=== PATIENT | female | born 1935 | race Hispanic/Latino ===

== ENCOUNTER 2019-05-11 10:29 | Inpatient (IN) | payer MEDICARE, OTHER ==
[~2019-05-11] VITALS: Ht 157.5 cm; Wt 84.1 kg
[2019-05-11 10:56] LABS: BASOPHILS % (AUTO) 0.4 % (0.0-5.0); EOSINOPHILS % (AUTO) 1.5 % (0.0-8.0); HEMATOCRIT 40.7 % (36-48); LYMPHOCYTES % (AUTO) 34.3 % (21.0-51.0); MEAN CORPUSCULAR HEMOGLOBIN 27.8 pg (27.0-33.0); MEAN CORPUSCULAR HGB CONC 31.7 g/dL (32.0-36.0); MEAN CORPUSCULAR VOLUME 87.7 fL (79-99); MONOCYTES % (AUTO) 8.4 % (3.0-13.0); NEUTROPHILS % (AUTO) 55.2 % (40.0-77.0); PLATELET COUNT (AUTO) 214 K/uL (130-400); RED BLOOD CELL COUNT(AUTO) 4.64 MIL/uL (4.00-5.50); RED CELL DISTRIBUTION WIDTH 13.6 % (11.0-15.5); WHITE BLOOD COUNT (AUTO) 4.5 K/uL (4.8-10.8)
[2019-05-11 11:06] LABS: INR 0.97 (0.85-1.15); PARTIAL THROMBOPLASTIN TIME 27.1 SEC (26.3-35.5); PROTHROMBIN TIME 10.5 SEC (9.6-11.6)
[2019-05-11 11:16] LABS: CREATININE 1.1 mg/dL (0.5-1.5); POTASSIUM 3.8 mmol/L (3.5-5.1)
[2019-05-11 11:20] LABS: ALBUMIN 3.5 g/dL (3.5-5.0); BILIRUBIN,TOTAL 0.7 mg/dL (0.2-1.0); TOTAL PROTEIN, SERUM 7.2 g/dL (6.0-8.3)
[2019-05-11 11:30] LABS: CREATINE KINASE, TOTAL 62 U/L (21-232); MYOGLOBIN 55 ng/mL (10-92); TROPONIN I < 0.04 ng/mL (0.00-0.06)
[2019-05-11 12:36] LABS: APPEARANCE,URINE Clear (CLEAR); BILIRUBIN,URINE Negative (NEGATIVE); COLOR,URINE Yellow (YELLOW); GLUCOSE, URINE (UA) Negative (NEGATIVE); KETONES,URINE Negative (NEGATIVE); LEUKOCYTE ESTERASE ,URINE Small (NEGATIVE); NITRATE,URINE Negative (NEGATIVE); OCCULT BLOOD,URINE Negative (NEGATIVE); PROTEIN,URINE Negative (NEGATIVE)
[2019-05-11 13:06] LABS: BACTERIA,URINE Rare /HPF (None Seen); RBC,URINE 0-1 /HPF (0-1)
[2019-05-11 13:07] LABS: AMPHET/METH SCREEN,URINE NEGATIVE (NEGATIVE); BARBITURATE SCREEN, URINE NEGATIVE (NEGATIVE); BENZODIAZEPINES SCREEN,URINE NEGATIVE (NEGATIVE); CANNABINOID SCREEN,URINE NEGATIVE (NEGATIVE); COCAINE SCREEN,URINE NEGATIVE (NEGATIVE); OPIATE SCREEN,URINE NEGATIVE (NEGATIVE); PHENCYCLIDINE SCREEN,URINE NEGATIVE (NEGATIVE); SQUAMOUS EPITHELIAL CELL,UR Rare /HPF (0-2)
[2019-05-11] MEDS ORDERED: ASPIRIN 325 MG TABLET ONE (14:03)
[2019-05-11] MEDS: SODIUM CHLORIDE 0.9% 1000ML 1,000 ML IV SCH (15:06)
[2019-05-11] MEDS ORDERED: ONDANSETRON HCL 4 MG/2 ML VIAL IV PRN (15:15)
[2019-05-11] MEDS ORDERED: MORPHINE SULFATE 2 MG/ML 1ML SYG IV PRN (15:15)
[2019-05-11] MEDS ORDERED: ACETAMINOPHEN 325 MG TAB PO PRN ×2 (15:15)
[2019-05-11] MEDS ORDERED: SODIUM CHLORIDE 0.9% 1000ML 1,000 ML IV ONE (17:00)
[2019-05-11 17:19] LABS: CHOLESTEROL 150 mg/dL (<200); HDL CHOLESTEROL 71 mg/dL (35-85); LDL DIRECT 85 mg/dL (0-99); TRIGLYCERIDES 100 mg/dL (30-200)
[2019-05-12 06:54] LABS: ALBUMIN 3.2 g/dL (3.5-5.0); BILIRUBIN,TOTAL 0.6 mg/dL (0.2-1.0); POTASSIUM 3.5 mmol/L (3.5-5.1); TOTAL PROTEIN, SERUM 6.6 g/dL (6.0-8.3)
[2019-05-12 07:22] LABS: BASOPHILS % (AUTO) 0.4 % (0.0-5.0); EOSINOPHILS % (AUTO) 0.9 % (0.0-8.0); LYMPHOCYTES % (AUTO) 31.4 % (21.0-51.0); MEAN CORPUSCULAR HEMOGLOBIN 27.8 pg (27.0-33.0); MEAN CORPUSCULAR HGB CONC 31.8 g/dL (32.0-36.0); MEAN CORPUSCULAR VOLUME 87.5 fL (79-99); MONOCYTES % (AUTO) 7.2 % (3.0-13.0); NEUTROPHILS % (AUTO) 59.9 % (40.0-77.0); PLATELET COUNT (AUTO) 157 K/uL (130-400); RED BLOOD CELL COUNT(AUTO) 4.57 MIL/uL (4.00-5.50); RED CELL DISTRIBUTION WIDTH 13.3 % (11.0-15.5); WHITE BLOOD COUNT (AUTO) 5.3 K/uL (4.8-10.8)
[2019-05-12 08:49] LABS: THYROID STIMULATING HORMONE 4.04 uIU/mL (0.36-3.74)
[2019-05-12] MEDS: CLOPIDOGREL BISULFATE 75 MG TAB PO SCH (09:00)
[2019-05-12] MEDS: FAMOTIDINE/PF 20 MG/2 ML VIAL IV SCH (09:00)
[2019-05-12] MEDS ORDERED: CLOPIDOGREL BISULFATE 75 MG TAB ONE (09:44)
[2019-05-12] MEDS ORDERED: FAMOTIDINE/PF 20 MG/2 ML VIAL IV ONE ×2 (09:45→10:08)
[2019-05-12] MEDS ORDERED: HYDRALAZINE HCL 20 MG/ML VIAL ONE ×2 (10:08→15:07)
[2019-05-12] MEDS: SODIUM CHLORIDE 0.9% 1000ML 1,000 ML IV SCH (11:06)
--- NOTE | 2019-05-12 13:29 | NUR ---
Status Admission criteria discussed with PMD. Also informed Dr. Ba is out on vacation. No further orders.
[2019-05-12] MEDS ORDERED: SODIUM CHLORIDE 0.9% 100 ML IV ONE (14:05)
--- NOTE | 2019-05-12 17:38 | NUR ---
ARRIVAL TO FLOOR / UNABLE TO DO ADMISSION QUESTIONS ROOM 223. PT IS AWAKE AND ALERT BUT POOR HISTORIAN, UNABLE TO COMPLETE ADMISSION PACKET. PT IS BREATHING COMFORTABLE, EVEN AND UNLABORED NO VISIBLE SIGNS OF DISTRESS NOTED. HOB UP AT 35 DEGREES. SIDE RAILS UP X4 CALL LIGHT WITHIN REACH, DOOR AJAR BLINDS OPEN.
[2019-05-12 17:45] VITALS: BP 147/63
[2019-05-12] MEDS ORDERED: CITA10TA7 PO (17:52)
[2019-05-12] MEDS ORDERED: METO-408 PO (17:52)
[2019-05-12] MEDS ORDERED: HYDR12.54 PO (17:52)
[2019-05-12] MEDS ORDERED: MECL-160 PO (17:52)
[2019-05-12] MEDS ORDERED: SIMV-43 PO (17:52)
[2019-05-12] MEDS ORDERED: CEPH500C2 PO (17:52)
[2019-05-12] MEDS ORDERED: DONE5TAB33 PO (17:52)
--- NOTE | 2019-05-12 17:53 | NUR ---
PATIENT ASKS WHAT THE NAME OF THIS BUILDING IS I ANSWER TO HER [facility] AND THAT SHES IN ROOM 223. PT SAYS "OH OK THANK YOU". NO VISIBLE SIGNS OF DISTRESS NOTED, DOOR AJAR BLINDS OPEN, SIDE RAILS UP X4.
--- NOTE | 2019-05-12 19:25 | NUR ---
Patient upset and confused patient woke up disoriented. only alert to self. tried to reorient her , introduced myself and staff in the room with me. She stated she needed to go to the but very paranoid as to why I was assisting her. Informed her that we were only there to help and guide her to prevent any unexpected falls. patient paranoid and seems afraid and confused. attempted to reorient her. patient was placed back into bed. explained time and situation and why she was in the hospital. patient not understanding. she is upset and distraught because I wont tell her " who bought this house?" attempted to reorient her once again. side rails up and bed alarm on , call light within reach. sitting in room with patient until sitter becomes available
[2019-05-12 19:27] VITALS: BP 147/69
[2019-05-12] MEDS: ATORVASTATIN CALCIUM 20 MG TABLET PO SCH ×2 (19:50→21:00)
--- NOTE | 2019-05-12 22:38 | NUR ---
update patient status patient has calmed down and is resting in bed, comfortable and denies any pain
[2019-05-12 23:29] VITALS: BP 127/62
[2019-05-13 03:55] VITALS: BP 163/73
--- NOTE | 2019-05-13 05:25 | NUR ---
patient orientation patient remained calm throughout the rest of the night and was able to fall asleep. no further issues
--- NOTE | 2019-05-13 06:59 | NUR ---
patient disoriented/agitated patient woke up disoriented and distraught. she believes that we are keeping her away from her family attempted to reorient her and reminded her of why she was in the hospital patient does not believe the information given to her and grabbed her belongings so she could go home. sitter at bedside
[2019-05-13 07:00] VITALS: BP 129/66
[2019-05-13] MEDS: SODIUM CHLORIDE 0.9% 1000ML 1,000 ML IV SCH (07:06)
[2019-05-13] MEDS: FAMOTIDINE/PF 20 MG/2 ML VIAL IV SCH (09:57)
[2019-05-13] MEDS: CLOPIDOGREL BISULFATE 75 MG TAB PO SCH (09:57)
[2019-05-13 11:38] VITALS: BP 133/57
--- NOTE | 2019-05-13 15:39 | NUR ---
[employer] PATIENT CONFUSED. AMS ON ADMISSION. CALLED FAMILY NO ANSWER. ELAN WILL CONTINUE TO FOLLOW. Addendum: 05/13/19 at 1544 by NAOMI PARIS RN CM Amended: Links added.
[2019-05-13 15:53] VITALS: BP 142/66
[2019-05-13] MEDS ORDERED: CLOP75TA14 PO (18:37)
== END 2019-05-13 21:05 | disposition home or self-care (01) | DRG 948 ==
LOC: EDH 10:29 → EDHIP 15:06 → 2DH 22:12 → EDHIP 22:14 → 2DH 05-12 17:27
PROVIDERS: ADMIT Hospitalist; ATTEND Hospitalist
DX: R41.82 Altered mental status, unspecified (principal); R47.01 Aphasia; Z86.73 Personal history of transient ischemic attack (TIA), and cerebral infarction without residual deficits; I10 Essential (primary) hypertension; F03.90 Unspecified dementia, unspecified severity, without behavioral disturbance, psychotic disturbance, mood disturbance, and anxiety
CPT/HCPCS: 36415; 70450; 70544; 70547; 70551; 71045; 80053; 80061; 80305; 81001; 82550; 82948; 83721; 83874; 84443; 84484; 85025; 85610; 85651; 85730; 86140; 86592; 93005; 93880; 97039; G0378; J0360; J3490; J7030